=== PATIENT | male | born 1945 | race Caucasian/White ===

== ENCOUNTER 2020-09-13 09:02 | Observation (INO) | payer MEDICARE, BC ==
[2020-09-13 09:47] LABS: #Eosinphils 0.1 thou/uL (0.0-0.7); #Lymphocytes 2.2 thou/uL (1.20-3.40); #Monocytes 0.8 thou/uL (0.11-0.59); #Neutrophils 5.8 thou/uL (1.40-6.50); %Basophils 0.4 % (0.0-1.0); %Eosinophils 0.8 % (0.0-10.0); %Lymphocytes 24.7 % (21.0-51.0); %Monocytes 9.3 % (0.0-10.0); %Neutrophils 64.8 % (42.0-75.0); Hemoglobin 13.9 g/dL (14.0-18.0); Mean Corpuscular HGB CONC 33.2 g/dL (32.0-36.0); Mean Corpuscular Hemoglobin 25.9 pg (27.0-31.0); Mean Platelet Volume 8.1 fL (7.4-10.4); Platelet Count 252 thou/uL (130-400); RBC Distribution Width 12.7 % (11.5-14.5); Red Blood Cell (RBC) Count 5.36 mill/uL (4.70-6.10)
[2020-09-13 10:13] LABS: ALT (SGPT) 31 U/L (8-55); AST (SGOT) 42 U/L (5-34); Albumin 3.5 g/dL (3.4-4.8); Alkaline Phosphatase 66 U/L (40-110); Anion Gap 15 mmol/L (10-20); BUN (Urea Nitrogen) 15 mg/dL (8.4-25.7); Bilirubin, Total 0.6 mg/dL (0.2-1.2); Calc. Creatinine Clearance 0 mL/min (70-130); Calcium 8.1 mg/dL (7.8-10.44); Carbon Dioxide 24 mmol/L (23-31); Chloride 93 mmol/L (98-107); Globulin 2.7 g/dL (2.4-3.5); Glucose 125 mg/dL (83-110); Potassium 3.8 mmol/L (3.5-5.1); Protein, Total 6.2 g/dL (5.8-8.1); Sodium 128 mmol/L (136-145)
--- NOTE | 2020-09-13 10:21 | RAD ---
EXAM: Single view of the chest HISTORY: Covid positive. Syncope COMPARISON: None FINDINGS: Single view of the chest shows a normal sized cardiomediastinal silhouette. Scattered multi focal infiltrates are seen in the lungs. No pleural effusion. No acute osseous abnormality. IMPRESSION: Scattered multifocal infiltrates
--- NOTE | 2020-09-13 10:54 | CT ---
CT BRAIN WITHOUT CONTRAST: HISTORY: Syncope, trauma, headache FINDINGS: No evidence of acute infarct, hemorrhage, midline shift or abnormal extra-axial fluid collections is seen. The ventricular size is appropriate and the basilar cisterns are patent. The bony calvarium is intact. The mastoid air cells are well aerated. There is mild mucosal disease in the paranasal sin uses. IMPRESSION: No CT evidence of acute intracranial process.
--- NOTE | 2020-09-13 11:05 | CT ---
CTA Angio Chest W WO Con History: Syncope. Covid pneumonia Comparison: Chest radiograph same day Findings: CT angiogram chest performed after the intravenous administration of contrast. 3-D renderin g provided. No proximal segmental pulmonary arterial filling defect. No pericardial effusion. Heart size is twin l. Upper abdominal evaluation is without acute abnormality. Small reactive mediastinal lymph nodes. Moderate peripheral and perihilar patchy airspace opacities. No pneumothorax. No pneumomediastinum. Thoracic spine is intact. Sternum and manubrium are intact. No acute displaced rib fracture. Impression: 1. No pulmonary embolism. 2. Moderate Covid pneumonia.
[2020-09-13] MEDS ORDERED: Loperamide HCl 2 MG CAP PO PRN (12:10)
[2020-09-13] MEDS ORDERED: Ondansetron PF 4 MG/2 ML Vial IVP PRN (12:10)
--- NOTE | 2020-09-13 12:18 | PDOC.HHP ---
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 Patient states he was diagnosed with COVID-19 on Sep 01, he has been having fever/chills, nausea, vomiting, diarrhea, and dry cough since then. Yesterday he was standing in his bathroom checking his temprature, he then started feeling dizzy/lightheaded. He went to his bedroom and sat on a chair, after than he is not sure what happened, he found himself on the floor. No bowel/urine incontinence. He says his heart has been "skipping/not beating weber" for the past 2 days. He denies chest pain, SOB, DAWKINS, or change in vision. He recently completed azithromycin and is currently on prednison. His O2 sat has been in the 90's on RA at home. ED Course: In the ED, initial VS stable. EKG showed NSR with PACs and RBBB. Lab showed Na: 128. CTA showed moderae COVID PNA but no PE. CT head snowed no acute intracranial abnormalities. Allergies/Adverse Reactions: Allergy/AdvReac Type Severity Reaction Status Date / Time No Known Allergies Allergy Unverified 09/13/20 12:37 Past History: PMHx: HTN, HLD, hx of polio (when he was a child, with residual LLE weakness) PSHx: renal surgery (?stenosis repair) FHx: Father: Bart Mother: dementia Social:former smoker, drinks alcohol occasionally, denies drug use Hospitalist HPI ROS Constitutional: reports: fever, chills Eyes: denies: vision change ENT: denies: throat pain Respiratory: reports: cough, dry. denies: shortness of breath Cardiovascular: denies: chest pain Gastrointestinal: reports: nausea, vomiting, abdominal pain, diarrhea Genitourinary: denies: dysuria Skin: denies: rash Other: positive for dizziness, syncope Hospitalist Exam General Appearance: NAD, awake alert Eye: PERRL ENT: moist mucosa Neck: supple Heart: RRR, no murmur Respiratory - other findings: bibasilar crackles Gastrointestinal: soft, non-tender, non-distended, normal bowel sounds Extremities: no edema Neurological: cranial nerve grossly intact, normal sensation to touch Neurological - other findings: decreased strength on the LLE Musculoskeletal: normal strength (except on the LLE) Psychiatric: normal affect, A&O x 3 Hospitalist Results Result Diagrams: 09/13/20 09:37 09/13/20 09:37 Lab results: Laboratory Last Values WBC 9.0 thou/uL (4.8-10.8) 09/13/20 09:37 RBC 5.36 mill/uL (4.70-6.10) 09/13/20 09:37 Hgb 13.9 g/dL (14.0-18.0) L 09/13/20 09:37 Hct 41.8 % (42.0-52.0) L 09/13/20 09:37 MCV 78.0 fL (78.0-98.0) 09/13/20 09:37 MCH 25.9 pg (27.0-31.0) L 09/13/20 09:37 MCHC 33.2 g/dL (32.0-36.0) 09/13/20 09:37 RDW 12.7 % (11.5-14.5) 09/13/20 09:37 Plt Count 252 thou/uL (130-400) 09/13/20 09:37 MPV 8.1 fL (7.4-10.4) 09/13/20 09:37 Neutrophils % 64.8 % (42.0-75.0) 09/13/20 09:37 Lymphocytes % 24.7 % (21.0-51.0) 09/13/20 09:37 Monocytes % 9.3 % (0.0-10.0) 09/13/20 09:37 Eosinophils % 0.8 % (0.0-10.0) 09/13/20 09:37 Basophils % 0.4 % (0.0-1.0) 09/13/20 09:37 Neutrophils # 5.8 thou/uL (1.40-6.50) 09/13/20 09:37 Lymphocytes # 2.2 thou/uL (1.20-3.40) 09/13/20 09:37 Monocytes # 0.8 thou/uL (0.11-0.59) H 09/13/20 09:37 Eosinophils # 0.1 thou/uL (0.0-0.7) 09/13/20 09:37 Basophils # 0.0 thou/uL (0.0-0.2) 09/13/20 09:37 Sodium 128 mmol/L (136-145) L 09/13/20 09:37 Potassium 3.8 mmol/L (3.5-5.1) 09/13/20 09:37 Chloride 93 mmol/L (98-107) L 09/13/20 09:37 Carbon Dioxide 24 mmol/L (23-31) 09/13/20 09:37 Anion Gap 15 mmol/L (10-20) 09/13/20 09:37 BUN 15 mg/dL (8.4-25.7) 09/13/20 09:37 Creatinine 1.04 mg/dL (0.7-1.3) 09/13/20 09:37 Estimated GFR (MDRD) 69 09/13/20 09:37 Glucose 125 mg/dL (83-110) H 09/13/20 09:37 Calcium 8.1 mg/dL (7.8-10.44) 09/13/20 09:37 Total Bilirubin 0.6 mg/dL (0.2-1.2) 09/13/20 09:37 AST 42 U/L (5-34) H 09/13/20 09:37 ALT 31 U/L (8-55) 09/13/20 09:37 Alkaline Phosphatase 66 U/L (40-110) 09/13/20 09:37 Troponin I Less than 0.010 ng/mL (< 0.028) 09/13/20 09:37 B-Natriuretic Peptide 19.9 pg/mL (0-100) 09/13/20 09:37 Serum Total Protein 6.2 g/dL (5.8-8.1) 09/13/20 09:37 Albumin 3.5 g/dL (3.4-4.8) 09/13/20 09:37 Globulin 2.7 g/dL (2.4-3.5) 09/13/20 09:37 Albumin/Globulin Ratio 1.3 g/dL (1.2-2.2) 09/13/20 09:37 EKG Status: image reviewed by me (NSR with PACs, RBBB) Other Additional Comments: RADIOLOGY [facility] Sep 13, 2020 11:07 MD Pink Bryan CTA Angio Chest W WO Con Observe DT: ThuSep 13, 2020 10:35, CTATHX CTA Angio Chest W WO Con History: Syncope. Covid pneumonia Comparison: Chest radiograph same day Findings: CT angiogram chest performed after the intravenous administration of contrast. 3-D renderin g provided. No proximal segmental pulmonary arterial filling defect. No pericardial effusion. Heart size is twin l. Upper abdominal evaluation is without acute abnormality. Small reactive mediastinal lymph nodes. Moderate peripheral and perihilar patchy airspace opacities. No pneumothorax. No pneumomediastinum. Thoracic spine is intact. Sternum and manubrium are intact. No acute displaced rib fracture. Impression: 1. No pulmonary embolism. 2. Moderate Covid pneumonia. . RADIOLOGY [facility] Sep 13, 2020 11:[address] Brain WO Con Observe DT: ThuSep 13, 2020 09:36, BR CT BRAIN WITHOUT CONTRAST: HISTORY: Syncope, trauma, headache FINDINGS: No evidence of acute infarct, hemorrhage, midline shift or abnormal extra-axial fluid collections is seen. The ventricular size is appropriate and the basilar cisterns are patent. The bony calvarium is intact. The mastoid air cells are well aerated. There is mild mucosal disease in the paranasal sin uses. IMPRESSION: No CT evidence of acute intracranial process. . RADIOLOGY [facility] Sep 13, 2020 11:07 MD Pink Bryan XR Chest 1 View Portable Observe DT: Khloe Sep 13, 2020 09:30, CXRP EXAM: Single view of the chest HISTORY: Covid positive. Syncope COMPARISON: None FINDINGS: Single view of the chest shows a normal sized cardiomediastinal silhouette. Scattered multi focal infiltrates are seen in the lungs. No pleural effusion. No acute osseous abnormality. IMPRESSION: Scattered multifocal infiltrates Hospitalist H&P A/P (1) Pneumonia due to COVID-19 virus Code(s): U07.1 - COVID-19; J12.82 - PNEUMONIA DUE TO CORONAVIRUS DISEASE 2019 Status: Acute Assessment and Plan: Not requering O2 supplement. He recently completed azithromycin and has been taking prednisone. Plan: -O2 supplement prn -symtomatic management with antiemetic, antipyretic, and antidiarrhea -IV fluid (2) Syncope Code(s): R55 - SYNCOPE AND COLLAPSE Status: Acute Assessment and Plan: CT head showed no acute intracranial abnormalities. EKG showed NSR with PACs and RBBB. This is likely from orthostatic hypotension due to dehydration. Plan: -Telemetry -Ehco -orthostatic VS, patient had already received 1L of NS in the ED -IV fluid (3) Hyponatremia Code(s): E87.1 - HYPO-OSMOLALITY AND HYPONATREMIA Status: Acute Assessment and Plan: Unknown chronicity, no previous lab result in the chart. Likely from hypovolumia. Plan: -BMP Q8H -IV fluid (4) HTN (hypertension) Code(s): I10 - ESSENTIAL (PRIMARY) HYPERTENSION Status: Chronic Assessment and Plan: patient did not take any of his home meds today, his SBP is in the low 100's. Plan: -hold home meds for now (5) HLD (hyperlipidemia) Code(s): E78.5 - HYPERLIPIDEMIA, UNSPECIFIED Status: Chronic Assessment and Plan: -cont home med
[2020-09-13] MEDS ORDERED: guaiFENesin/DM ER PO SCH (12:45)
[2020-09-13] MEDS: Sodium Chloride 0.9% 1,000 ML IV SCH (14:43)
[2020-09-13 17:34] LABS: Anion Gap 13 mmol/L (10-20); BUN (Urea Nitrogen) 11 mg/dL (8.4-25.7); Calc. Creatinine Clearance 74 mL/min (70-130); Calcium 7.8 mg/dL (7.8-10.44); Carbon Dioxide 23 mmol/L (23-31); Chloride 95 mmol/L (98-107); Glucose 99 mg/dL (83-110); Potassium 4.1 mmol/L (3.5-5.1); Sodium 127 mmol/L (136-145)
[2020-09-13] MEDS ORDERED: Iopamidol-370 76% 500 ML 1 ML ONE (17:55)
[2020-09-13] MEDS: Acetaminophen 325 MG TAB PO PRN (20:21)
[2020-09-13] MEDS: guaiFENesin/DM ER PO SCH (20:21)
[2020-09-13] MEDS ORDERED: Atorvastatin Calcium 10 MG TAB PO SCH (21:00)
[2020-09-14 01:25] LABS: Anion Gap 11 mmol/L (10-20); BUN (Urea Nitrogen) 12 mg/dL (8.4-25.7); Calc. Creatinine Clearance 75 mL/min (70-130); Calcium 7.4 mg/dL (7.8-10.44); Carbon Dioxide 22 mmol/L (23-31); Chloride 98 mmol/L (98-107); Glucose 99 mg/dL (83-110); Potassium 4.3 mmol/L (3.5-5.1); Sodium 127 mmol/L (136-145)
[2020-09-14 04:35] LABS: #Lymphocytes 1.9 thou/uL (1.20-3.40); #Monocytes 0.6 thou/uL (0.11-0.59); #Neutrophils 3.9 thou/uL (1.40-6.50); %Basophils 0.5 % (0.0-1.0); %Eosinophils 0.6 % (0.0-10.0); %Lymphocytes 29.3 % (21.0-51.0); %Monocytes 9.8 % (0.0-10.0); %Neutrophils 59.8 % (42.0-75.0); Hemoglobin 13.3 g/dL (14.0-18.0); Mean Corpuscular HGB CONC 33.7 g/dL (32.0-36.0); Mean Corpuscular Hemoglobin 26.7 pg (27.0-31.0); Mean Corpuscular Volume 79.2 fL (78.0-98.0); Mean Platelet Volume 7.6 fL (7.4-10.4); Platelet Count 204 thou/uL (130-400); RBC Distribution Width 12.8 % (11.5-14.5); Red Blood Cell (RBC) Count 4.99 mill/uL (4.70-6.10); White Blood Cell (WBC) Count 6.5 thou/uL (4.8-10.8)
[2020-09-14] MEDS: Sodium Chloride 0.9% 1,000 ML IV SCH ×2 (05:34→14:59)
[2020-09-14 09:22] LABS: Anion Gap 13 mmol/L (10-20); BUN (Urea Nitrogen) 9 mg/dL (8.4-25.7); Calc. Creatinine Clearance 84 mL/min (70-130); Calcium 7.6 mg/dL (7.8-10.44); Carbon Dioxide 23 mmol/L (23-31); Chloride 97 mmol/L (98-107); Glucose 91 mg/dL (83-110); Potassium 3.6 mmol/L (3.5-5.1); Sodium 129 mmol/L (136-145)
[2020-09-14] MEDS: guaiFENesin/DM ER PO SCH ×2 (09:41→20:20)
[2020-09-14 11:27] VITALS: BMI 25.3
[2020-09-14] MEDS ORDERED: FLU VACC QS2020-21(65YR UP)/PF 240 MCG/0.7 ML SYRINGE IM ONE (14:30)
[2020-09-14] MEDS ORDERED: Metoclopramide HCl 10 MG/2 ML VIAL IVP PRN (15:01)
--- NOTE | 2020-09-14 15:11 | PDOC.HOSPP ---
- Subjective Encounter Date: 09/14/20 Encounter Time: 15:02 Subjective: This is a 75-year-old patient who recently recovered from COVID-19 infection who presented to the hospital after he suffered what appears to be a syncopal episode at home. He reported that he was in his bathroom when he attempted to check his temperature and he suddenly got dizzy and lightheaded. He went back to his bedroom where he reportedly fainted for couple of minutes. He was admitted to the hospital for further stabilization. His main complaint now appears to be cough and inability to keep anything down. We are going to support him with antimedics and also antitussives. - Objective Vital Signs & Weight: Vital Signs (12 hours) Temp Pulse Resp BP BP BP Pulse Ox 09/14/20 12:00 97.9 F 101 H 18 142/76 H 91 L 09/14/20 08:55 99.2 F 95 23 H 155/67 H 165/77 H 145/70 H 92 L 09/14/20 03:29 98.5 F 72 24 H 139/63 92 L Weight Admit Weight 151 lb 0.266 oz Weight 152 lb 3 oz I&O: 09/13/20 09/14/20 09/15/20 06:59 06:59 06:59 Intake Total 1530 Output Total 750 Balance 780 Result Diagrams: 09/14/20 04:09 09/14/20 08:49 Radiology Reviewed by me: Yes EKG Reviewed by me: Yes Hospitalist ROS - Review of Systems Constitutional: reports: weakness Gastrointestinal: reports: nausea, vomiting - Medication Medications: Active Medications Generic Name Dose Route Start Last Admin Trade Name Freq PRN Reason Stop Dose Admin Acetaminophen 650 mg 09/13/20 12:10 09/13/20 20:21 Acetaminophen 325 Mg Tab PO 650 mg Q4H PRN Administration Headache/Fever/Mild Pain (1-3) Atorvastatin Calcium 10 mg 09/13/20 21:00 09/13/20 20:21 Atorvastatin Calcium 10 Mg Tab PO 10 mg HS DARIEN Administration Guaifenesin/Dextromethorphan 2 tab 09/13/20 21:00 09/14/20 09:41 Guaifenesin/Dm Er PO 2 tab Q12HR DARIEN Administration Sodium Chloride 1,000 mls @ 75 mls/hr 09/13/20 12:30 09/14/20 14:59 Normal Saline 0.9% IV 1,000 mls .[id number] DARIEN Administration Ondansetron HCl 4 mg 09/13/20 12:10 09/14/20 14:58 Ondansetron Pf 4 Mg/2 Ml Vial IVP 4 mg Q6H PRN Administration Nausea/Vomiting Hospitalist Exam Vitals: Vital Signs (12 hours) Temp Pulse Resp BP BP BP Pulse Ox 09/14/20 12:00 97.9 F 101 H 18 142/76 H 91 L 09/14/20 08:55 99.2 F 95 23 H 155/67 H 165/77 H 145/70 H 92 L 09/14/20 03:29 98.5 F 72 24 H 139/63 92 L Weight Admit Weight 151 lb 0.266 oz Weight 152 lb 3 oz General Appearance: NAD, awake alert, ill appearing Eye: PERRL, anicteric sclera ENT: normocephalic atraumatic, no oropharyngeal lesions Neck: supple, symmetric, no JVD, no thyromegaly Heart: RRR, no murmur, no gallops Respiratory: CTAB, no wheezes, no rales Gastrointestinal: soft, non-tender Neurological: cranial nerve grossly intact Psychiatric: normal affect, normal behavior Hosp A/P (1) Syncope Code(s): R55 - SYNCOPE AND COLLAPSE Status: Acute Qualifiers: Syncope type: vasovagal syncope Qualified Code(s): R55 - Syncope and collapse Plan: Likely related to the recent COVID-19 infection. I suspect he got volume depleted and became hypotensive. CT of the head was normal. We will consider echocardiogram. (2) Pneumonia due to COVID-19 virus Code(s): U07.1 - COVID-19; J12.82 - PNEUMONIA DUE TO CORONAVIRUS DISEASE 2019 Status: Acute (3) Hyponatremia Code(s): E87.1 - HYPO-OSMOLALITY AND HYPONATREMIA Status: Acute (4) Dehydration Code(s): E86.0 - DEHYDRATION Status: Acute
[2020-09-14 17:51] LABS: Anion Gap 13 mmol/L (10-20); BUN (Urea Nitrogen) 10 mg/dL (8.4-25.7); Calc. Creatinine Clearance 80 mL/min (70-130); Calcium 8.1 mg/dL (7.8-10.44); Carbon Dioxide 24 mmol/L (23-31); Chloride 97 mmol/L (98-107); Glucose 112 mg/dL (83-110); Sodium 130 mmol/L (136-145)
[2020-09-14] MEDS: Acetaminophen 325 MG TAB PO PRN (20:20)
[2020-09-14] MEDS ORDERED: Dexamethasone 4 mg/ml Vial SLOW IVP SCH (21:45)
[2020-09-15 04:50] LABS: #Lymphocytes 1.4 thou/uL (1.20-3.40); #Monocytes 0.3 thou/uL (0.11-0.59); %Basophils 0.2 % (0.0-1.0); %Eosinophils 0.2 % (0.0-10.0); %Lymphocytes 20.6 % (21.0-51.0); %Monocytes 4.7 % (0.0-10.0); %Neutrophils 74.4 % (42.0-75.0); Mean Corpuscular HGB CONC 34.3 g/dL (32.0-36.0); Mean Corpuscular Hemoglobin 27.1 pg (27.0-31.0); Mean Corpuscular Volume 78.8 fL (78.0-98.0); Mean Platelet Volume 7.7 fL (7.4-10.4); Platelet Count 218 thou/uL (130-400); RBC Distribution Width 12.7 % (11.5-14.5); Red Blood Cell (RBC) Count 4.79 mill/uL (4.70-6.10); White Blood Cell (WBC) Count 6.8 thou/uL (4.8-10.8)
[2020-09-15 05:11] LABS: Anion Gap 13 mmol/L (10-20); BUN (Urea Nitrogen) 10 mg/dL (8.4-25.7); Calc. Creatinine Clearance 86 mL/min (70-130); Calcium 7.7 mg/dL (7.8-10.44); Carbon Dioxide 20 mmol/L (23-31); Chloride 102 mmol/L (98-107); Glucose 134 mg/dL (83-110); Potassium 4.4 mmol/L (3.5-5.1); Sodium 131 mmol/L (136-145)
[2020-09-15] MEDS: Dexamethasone 4 mg/ml Vial SLOW IVP SCH (08:17)
[2020-09-15] MEDS: Sodium Chloride 0.9% 1,000 ML IV SCH (08:18)
[2020-09-15] MEDS: Enoxaparin Sodium 40 MG/0.4 ML SYRINGE SC SCH (08:18)
[2020-09-15] MEDS: Tamsulosin HCl 0.4 MG CAP PO SCH (08:18)
[2020-09-15] MEDS: Atorvastatin Calcium 10 MG TAB PO SCH (08:18)
[2020-09-15] MEDS: Aspirin 81 mg Enteric Coated Tablet PO SCH (08:18)
[2020-09-15] MEDS: guaiFENesin/DM ER PO SCH ×2 (08:23→20:02)
--- NOTE | 2020-09-15 14:18 | PDOC.HOSPP ---
- Subjective Encounter Date: 09/15/20 Encounter Time: 14:17 Subjective: Events from last night are reviewed. Nursing staff reported that he got a little bit more short of breath and needed to be moved to the stroke unit however. Today he is doing really well. He is off oxygen and saturation is above 94%. We will continue to provide supportive care today and I am hopeful within the next 24 hours he will be medically optimized for discharge home. - Objective Vital Signs & Weight: Vital Signs (12 hours) Temp Pulse Resp BP BP Pulse Ox 09/15/20 12:00 97.7 F 83 18 137/76 94 L 09/15/20 08:00 97.4 F L 86 19 147/75 H 09/15/20 03:20 98.2 F 85 18 126/74 93 L Weight Admit Weight 151 lb 0.266 oz Weight 152 lb 3 oz I&O: 09/14/20 09/15/20 09/16/20 06:59 06:59 06:59 Intake Total 1530 2535 Output Total 750 1150 400 Balance 780 1385 -400 Result Diagrams: 09/15/20 04:15 09/15/20 04:15 Radiology Reviewed by me: Yes EKG Reviewed by me: Yes Hospitalist ROS - Review of Systems Constitutional: reports: weakness, malaise Respiratory: reports: cough, dry - Medication Medications: Active Medications Generic Name Dose Route Start Last Admin Trade Name Freq PRN Reason Stop Dose Admin Acetaminophen 650 mg 09/13/20 12:10 09/14/20 20:20 Acetaminophen 325 Mg Tab PO 650 mg Q4H PRN Administration Headache/Fever/Mild Pain (1-3) Aspirin 81 mg 09/15/20 09:00 09/15/20 08:18 Aspirin 81 Mg Enteric Coated Tablet PO 81 mg DAILY DARIEN Administration Atorvastatin Calcium 10 mg 09/15/20 09:00 09/15/20 08:18 Atorvastatin Calcium 10 Mg Tab PO 10 mg DAILY DARIEN Administration Dexamethasone 4 mg 09/15/20 09:00 09/15/20 08:17 Dexamethasone 4 Mg/Ml Vial SLOW IVP 4 mg DAILY DARIEN Administration Enoxaparin Sodium 40 mg 09/15/20 09:00 09/15/20 08:18 Enoxaparin Sodium 40 Mg/0.4 Ml Syringe SC 40 mg 0900 DARIEN Administration Guaifenesin/Dextromethorphan 2 tab 09/13/20 21:00 09/15/20 08:23 Guaifenesin/Dm Er PO 2 tab Q12HR DARIEN Administration Ondansetron HCl 4 mg 09/13/20 12:10 09/14/20 14:58 Ondansetron Pf 4 Mg/2 Ml Vial IVP 4 mg Q6H PRN Administration Nausea/Vomiting Tamsulosin HCl 0.4 mg 09/15/20 09:00 09/15/20 08:18 Tamsulosin Hcl 0.4 Mg Cap PO 0.4 mg DAILY DARIEN Administration Hospitalist Exam Vitals: Vital Signs (12 hours) Temp Pulse Resp BP BP Pulse Ox 09/15/20 12:00 97.7 F 83 18 137/76 94 L 09/15/20 08:00 97.4 F L 86 19 147/75 H 09/15/20 03:20 98.2 F 85 18 126/74 93 L Weight Admit Weight 151 lb 0.266 oz Weight 152 lb 3 oz General Appearance: NAD, awake alert Eye: PERRL, anicteric sclera ENT: normocephalic atraumatic, no oropharyngeal lesions Neck: supple, symmetric, no JVD, no thyromegaly Heart: RRR, no murmur, no gallops Respiratory: normal chest expansion, rhonchi, wheezes Gastrointestinal: soft, non-tender, non-distended, normal bowel sounds Neurological: cranial nerve grossly intact, normal sensation to touch Musculoskeletal: normal tone, normal strength, no muscle wasting Psychiatric: normal affect, normal behavior, A&O x 3 Hosp A/P (1) Syncope Code(s): R55 - SYNCOPE AND COLLAPSE Status: Resolved Qualifiers: Syncope type: vasovagal syncope Qualified Code(s): R55 - Syncope and collapse Plan: Normal syncopal episodes reported. I believe his syncope was related to volume depletion. He seems to be back to his baseline. I am hopeful within the next 24 hours he will be medically optimized for discharge home. (2) Pneumonia due to COVID-19 virus Code(s): U07.1 - COVID-19; J12.82 - PNEUMONIA DUE TO CORONAVIRUS DISEASE 2019 Status: Acute (3) Hyponatremia Code(s): E87.1 - HYPO-OSMOLALITY AND HYPONATREMIA Status: Acute (4) Dehydration Code(s): E86.0 - DEHYDRATION Status: Acute - Plan old records reviewed/req, PT/OT
[2020-09-16 04:17] LABS: #Lymphocytes 1.7 thou/uL (1.20-3.40); #Monocytes 0.7 thou/uL (0.11-0.59); #Neutrophils 5.8 thou/uL (1.40-6.50); %Eosinophils 0.1 % (0.0-10.0); %Lymphocytes 20.9 % (21.0-51.0); %Monocytes 8.9 % (0.0-10.0); Hemoglobin 12.4 g/dL (14.0-18.0); Mean Corpuscular HGB CONC 33.3 g/dL (32.0-36.0); Mean Corpuscular Hemoglobin 26.1 pg (27.0-31.0); Mean Corpuscular Volume 78.4 fL (78.0-98.0); Mean Platelet Volume 7.5 fL (7.4-10.4); Platelet Count 259 thou/uL (130-400); RBC Distribution Width 12.7 % (11.5-14.5); Red Blood Cell (RBC) Count 4.75 mill/uL (4.70-6.10); White Blood Cell (WBC) Count 8.3 thou/uL (4.8-10.8)
[2020-09-16] MEDS: guaiFENesin/DM ER PO SCH (08:51)
[2020-09-16] MEDS: Dexamethasone 4 mg/ml Vial SLOW IVP SCH (08:51)
[2020-09-16] MEDS: Tamsulosin HCl 0.4 MG CAP PO SCH (08:51)
[2020-09-16] MEDS: Atorvastatin Calcium 10 MG TAB PO SCH (08:52)
[2020-09-16] MEDS: Enoxaparin Sodium 40 MG/0.4 ML SYRINGE SC SCH (08:52)
[2020-09-16] MEDS: Aspirin 81 mg Enteric Coated Tablet PO SCH (08:52)
--- NOTE | 2020-09-16 14:56 | PDOC.DS.DS ---
Provider Date of Admission: 09/13/20 11:46 Date of Discharge: 09/16/20 Admitting Provider: Luh Epperson MD Primary Care Physician: NO PCP PROVIDER Course Hospital Course: This patient is a 75-year-old male who was diagnosed with COVID-19 pneumonia recently. He presented to the hospital after he suffered what appears to be syncopal episode. Reportedly he was in his bathroom when he bent down to check his temperature and he suddenly got dizzy and lightheaded. He went back to his room and sat on a chair and he thinks that he may have passed out. He was brought here and hospitalized for further evaluation. He had multiple imaging studies including CT of the head did not show any acute findings. CTA of the chest did not show any acute pulmonary embolus. The patient syncopal episode was felt to be secondary to volume depletion resulting from decreased oral intake since his Covid diagnosis. He was placed in the hospital mostly for supportive care. Overall he did well since his admission. He is requiring oxygen and this has been arranged for him to DC home with. I saw and evaluated him today and he seems to be back to his baseline and feeling better. He will discharge home today with oxygen to use as needed. He had hyponatremia and this was corrected prior to discharge. Resuscitation Status: 09/13/20 12:10 Resuscitation Status Routine Resuscitation Status: FULL: Full Resuscitation Discussed with: patient Lab Results: 09/16/20 03:49 09/15/20 04:15 Abnormal Lab Results - Last 48 hrs 09/14/20 17:21: Sodium 130 L, Chloride 97 L 09/14/20 20:38: D-Dimer 2.38 H 09/14/20 20:38: C-Reactive Protein 6.78 H 09/14/20 20:38: Ferritin 561.96 H 09/15/20 04:15: Hgb 13.0 L, Hct 37.8 L, Lymphocytes % 20.6 L 09/15/20 04:15: Sodium 131 L, Carbon Dioxide 20 L, Calcium 7.7 L 09/16/20 03:49: Hgb 12.4 L, Hct 37.2 L, MCH 26.1 L, Lymphocytes % 20.9 L, Monocytes # 0.7 H Vitals: Vital Signs (12 hours) Temp Pulse Resp BP BP Pulse Ox 09/16/20 10:59 97.4 F L 90 19 150/59 H 97 09/16/20 07:53 97.8 F 74 17 128/70 100 09/16/20 03:58 97.8 F 72 20 125/68 93 L Weight Admit Weight 151 lb 0.266 oz Weight 152 lb 3 oz Physical Exam: The patient was seen and examined on the day of discharge. Eye: PERRL, anicteric sclera ENT: normocephalic atraumatic, no oropharyngeal lesions Neck: supple, symmetric, no JVD, no thyromegaly Respiratory: CTAB, no wheezes, no rales, no ronchi Cardiovascular: RRR, no murmur, no gallops, no rubs, normal peripheral pulses Gastrointestinal: soft, non-tender, non-distended, normal bowel sounds Neurological: cranial nerve grossly intact, normal sensation to touch Musculoskeletal: normal tone, normal strength, no muscle wasting PSYCH: normal affect, normal behavior, A&O x 3 Problem Plan of Treatment: See patient discharge instruction sheet for detailed teaching. Patient verbalizes understanding of medications and is able to verbalize follow-up care. See Discharge Plan for additional discharge information. Patient secured in private vehicle prior to departure.See patient discharge instruction sheet for detailed teaching. Patient verbalizes understanding of medications and is able to verbalize follow-up care. See Discharge Plan for additional discharge information. Patient secured in private vehicle prior to departure.FOCUS: Transition from Acute Care after Discharge GOAL: Successful transition to care in the community YOUR TASKS: (1) review all information outlined in your discharge packet (2) follow any instructions outlined in your discharge packet (3) contact your primary care provider if you have questions or need additional assistance (1) Syncope Code(s): R55 - SYNCOPE AND COLLAPSE Status: Resolved Qualifiers: Syncope type: vasovagal syncope Qualified Code(s): R55 - Syncope and collapse (2) Pneumonia due to COVID-19 virus Code(s): U07.1 - COVID-19; J12.82 - PNEUMONIA DUE TO CORONAVIRUS DISEASE 2019 Status: Acute (3) Hyponatremia Code(s): E87.1 - HYPO-OSMOLALITY AND HYPONATREMIA Status: Resolved (4) Dehydration Code(s): E86.0 - DEHYDRATION Status: Acute Time Spent in discharge related activities (mins): 30 Plan Prescriptions: Dexamethasone [Decadron] 4 mg PO DAILY #7 tab Home Medications: Medication Instructions Recorded Confirmed Type Amlodipine Besylate [amLODIPine 5 mg PO DAILY 09/13/20 09/13/20 History Besylate] Aspirin [Ecotrin Low Strength] 81 mg PO DAILY 09/13/20 09/13/20 History Atorvastatin Calcium [Lipitor] 10 mg PO DAILY 09/13/20 09/13/20 History Metoprolol Succinate [Toprol Xl] 50 mg PO TID 09/13/20 09/13/20 History Sulfacetamide Sodium/Sulfur 10 mg TOP DAILY 09/13/20 09/13/20 History [Sulfacetamide 10%/Sulfur 5% Cream] Tamsulosin HCl [Flomax] 0.4 mg PO DAILY 09/13/20 09/13/20 History Dexamethasone [Decadron] 4 mg PO DAILY #7 tab 09/16/20 Rx Allergies: grass pollen Allergy (Verified 09/13/20 14:30) Discharge Instructions:: Activity as tolerated O2 @ 2 liters per nasal [place] Regular diet Activity:: Activity as Tolerated Nourishment:: Heart Healthy Diet Referrals: [facility], [facility] [Other] ([facility] will be providing your home oxygen equipment.) Charles Franks Jr, MD [Active] - PROVIDER,NO PCP [Primary Care Provider] - () Disposition: HOME Quality CORE MEASURES:: N/A
[2020-09-16 17:43] VITALS: BP 147/68; TEMP 97.9
--- NOTE | 2020-09-22 16:51 | EKG ---
Test Reason : Blood Pressure : / mmHG Vent. Rate : 071 BPM Atrial Rate : 071 BPM P-R Int : 150 ms QRS Dur : 144 ms QT Int : 426 ms P-R-T Axes : 054 111 024 degrees QTc Int : 462 ms Sinus rhythm with Premature atrial complexes Right bundle branch block Septal infarct , age undetermined Abnormal ECG Confirmed by JANUARY OBANDO, CHAVA ([id number]), tape editor ROSETTE BAXTER ([id number]) on 09/22/2020 4:51:17 PM Referred By: Confirmed By:CHAVA SIN MD
== END 2020-09-16 16:59 | disposition home or self-care (01) ==
LOC: ERS 09:02 → 2NO 11:46 → INTOOBSV 11:46 → 2SE 09-14 21:02
PROVIDERS: ADMIT Internal Medicine; ATTEND Hospitalist
DX: U07.1 COVID-19 (principal); J12.82 Pneumonia due to coronavirus disease 2019; R55 Syncope and collapse; E87.1 Hypo-osmolality and hyponatremia; E86.0 Dehydration; I10 Essential (primary) hypertension; E78.5 Hyperlipidemia, unspecified; R53.1 Weakness; B91 Sequelae of poliomyelitis; I45.10 Unspecified right bundle-branch block; E78.00 Pure hypercholesterolemia, unspecified; Z87.891 Personal history of nicotine dependence; Z79.82 Long term (current) use of aspirin; Z79.899 Other long term (current) drug therapy; Z91.048 Other nonmedicinal substance allergy status
CPT/HCPCS: 36415; 70450; 71045; 71275; 80048; 80053; 82728; 83880; 84484; 85025; 85379; 86140; 93005; 93306; J1100; J1650; J2405; Q9967